=== PATIENT | female | born 1950 | race Caucasian/White ===

== ENCOUNTER 2019-04-26 17:43 | Emergency (ER) | payer MEDICARE, OTHER ==
[~2019-04-26] VITALS: Ht 165.1 cm; Wt 107.5 kg
--- NOTE | 2019-04-26 17:43 | NUR ---
ARRIVAL PT ARRIVED VIA [facility] TO ER 6 C/O RIGHT ANTERIOR RIB PAIN POST FALL 2 DAYS AGO. PT STATES PAIN WITH MOVEMENT, COUGH OR DEEP BREATH. PT STATES GOT UP TO USE RESTROOM, DOES NOT REMEMBER FALL. NO ACUTE DISTRESS NOTED. EDP NOTIFIED OF PT ARRIVAL.
[2019-04-26 17:58] VITALS: BP 113/61
[2019-04-26 18:01] VITALS: BP 113/61
--- NOTE | 2019-04-26 18:22 | NUR ---
BP CUFF PT REMOVED BP CUFF AT THIS TIME, DOES NOT WANT TO WEAR IT ANY LONGER.
--- NOTE | 2019-04-26 19:40 | ER.PDOC ---
General Chief Complaint: Trunk Pain/Injury Stated Complaint: FALL Time seen by MD: 19:20 Source: patient Exam Limitations: no limitations History of Present Illness Initial Comments Pt fell at sister's house two days ago, hit right rib cage and shoulder Occurred: last week Where: neighbor's Severity: mild Injuries/Pain Location: upper extremity, chest Loss of Consciousness: No Loss of Consciousness Associated Symptoms: chest pain Allergies: Coded Allergies: No Known Allergies (Unverified , 04/26/19) Past Medical History Medical History: cancer, congestive heart failure, diabetes Surgical History: cholecystectomy, tubal Social History Smoking: non-smoker Alcohol Use: none Drug Use: none Review of Systems Musculoskeletal: see HPI All Other Systems: Reviewed and Negative Physical Exam General Appearance: No Apparent Distress, WD/WN Head: No Evidence of Injury Eyes: bilateral eye normal inspection Ears, Nose, Mouth, Throat: Hearing Grossly Normal, No Evidence of ENT Injury, No Dental Injury Neck: Non-Tender, Normal Alignment, Nexus criteria neg, Normal Inspection Cardiovascular/Respiratory: Regular Rate, Rhythm, No M/R/G, Normal Peripheral Pulses, No JVD, Normal Breath Sounds, No Respiratory Distress, Rib Tenderness (right) Back: Normal Inspection, No CVA Tenderness, No Vertebral Tenderness Extremities: No Evidence of Injury, Normal Range of Motion, Non-Tender, No Pedal Edema, Pain With Movement (shoulder, right) Neurologic/Psychiatric: client account representative II-XII NML as Tested, No Motor/Sensory Deficits, Alert, Normal Mood/Affect, Oriented x 3 Skin: Normal Color, Warm/Dry Gerson Coma Score Best Eye Response: (4) Open Spontaneously Best Verbal Response: (5) Oriented Best Motor Response: (6) Obeys Commands Results/Orders Results/Orders Orders - RIC MA MD Xr Shoulder Rt 2v (04/26/19 19:23) Xr Ribs Rt W/Cxr (04/26/19 19:23) Ct Head Wo Contrast (04/26/19 20:07) Vital Signs Date Time Temp Pulse Resp B/P (MAP) Pulse Ox O2 Delivery O2 Flow Rate FiO2 04/26/19 20:36 85 19 100/60 (73) 94 Room Air 04/26/19 18:01 98.4 85 16 113/61 (78) 95 Room Air 04/26/19 17:58 98.4 85 16 04/26/19 17:43 98.4 85 16 95 Room Air Departure Time of Disposition: 20:57 Disposition: 01 HOME, SELF-CARE Impression: Primary Impression: Contusion of chest wall Additional Impressions: Rib pain Head injury Condition: Stable Patient Instructions: Contusion, [id number], Head Injury, Adult, [id number] Referrals: PCP,UNKNOWN (PCP) PRIMARY CARE PROVIDER Duration or Time Spent with Pa: 20 Problem Qualifiers RIC MA MD Apr 26, 2019 19:40
--- NOTE | 2019-04-26 20:17 | DIREP ---
PROCEDURE:XRAY SHOULDER MIN 2 VWS-RT COMPARISON:None. INDICATIONS:Fall, shoulder pain FINDINGS:Frontal internal and externally rotated views of the shoulder. BONES:No fracture. JOINTS:No dislocation. Moderate degenerative change of the AC joint. The glenohumeral joint is not well characterized on this study , however at least moderate degeneration is suspected. SOFT TISSUES:Normal. OTHER:Right jugular port with the tip projecting over the superior vena cava. CONCLUSION:No fracture. No dislocation. Moderate degenerative change of the AC joint. Glenohumeral joint is not well visualized. Dictated by: Reddy Nguyen MD on 04/26/2019 at 08:14 PM
--- NOTE | 2019-04-26 20:20 | DIREP ---
PROCEDURE:XRAY RIBS W/PA CHEST 3VWS-RT COMPARISON:None. INDICATIONS:Fall rib pain FINDINGS:CHEST WITH AP AND OBLIQUE VIEW OF THE RIGHT RIBS CHEST:No active pulmonary disease. RIBS:No fracture. OTHER:Moderate degenerative changes of the bilateral AC joints and bilateral shoulders. CONCLUSION:No active pulmonary disease. No pneumothorax. Right-sided jugular port tip projects over the superior vena cava. No evidence of displaced rib fracture. Dictated by: Reddy Nguyen MD on 04/26/2019 at 08:15 PM
[2019-04-26 20:31] VITALS: BP 108/69
[2019-04-26 20:36] VITALS: BP 100/60
--- NOTE | 2019-04-26 20:55 | DIREP ---
PROCEDURE:CT HEAD WITHOUT CONTRAST TECHNIQUE:Axial cuts were obtained through the head, without intravenous contrast material. The images were viewed at brain and bone settings. COMPARISON:None. INDICATIONS:Fall, head injury FINDINGS: VENTRICLES:Normal. CEREBRUM:There is no CT evidence of mass, hemorrhage, or acute infarct. CEREBELLUM:Normal. BRAINSTEM:Normal. SKULL:There is a minimal right parietal scalp hematoma, without associated fracture. SINUSES:Normal. OTHER:Negative. CONCLUSION: 1. There is a minimal right parietal scalp hematoma, without associated fracture or intracranial injury. 2. No acute intracranial abnormality is identified. Dictated by: Reddy Nguyen MD on 04/26/2019 at 08:51 PM
== END 2019-04-26 21:12 | disposition home or self-care (01) ==
LOC: ER 17:43 → EDBD 17:47 → ER 21:12
DX: S20.211A Contusion of right front wall of thorax, initial encounter (principal); S09.90XA Unspecified injury of head, initial encounter; E11.9 Type 2 diabetes mellitus without complications; I50.9 Heart failure, unspecified; M25.511 Pain in right shoulder; Z90.49 Acquired absence of other specified parts of digestive tract; Z98.51 Tubal ligation status; W19.XXXA Unspecified fall, initial encounter; Y93.89 Activity, other specified; Y92.098 Other place in other non-institutional residence as the place of occurrence of the external cause; Y99.8 Other external cause status
CPT/HCPCS: 70450; 99284; 71101-RT; 73030-RT